=== PATIENT | male | born 1935 | race Caucasian/White ===

== ENCOUNTER → 2023-12-13 12:43 | Outpatient (REF) | payer MEDICARE, OTHER, SELFPAY | LOC: WOUND 12:43 | PROVIDERS: ATTENDING PHYSICIAN Surgery; REFERRING PHYSICIAN Student in an Organized Health Care Education/Training Program | DX: L89.623 Pressure ulcer of left heel, stage 3 (principal); E11.9 Type 2 diabetes mellitus without complications; R60.0 Localized edema; C61 Malignant neoplasm of prostate; R26.81 Unsteadiness on feet | CPT/HCPCS: 11042; 36415; 73630; 80053; 84153; 84403; 85025; 99204 ==

== ENCOUNTER 2024-06-17 20:54 | Emergency (ER) | payer MEDICARE, OTHER, SELFPAY ==
[2024-06-17 20:56] VITALS: BP 173/77; BMI 22.6
[2024-06-17 20:58] VITALS: BP 173/77
[2024-06-17 22:00] VITALS: BP 163/72
--- NOTE | 2024-06-17 22:53 | ED.GENMED ---
History of Present Illness
General
Chief Complaint: Musculo-Skeletal Complaint
Source: patient
Exam Limitations: none
Time Seen by Provider: 06/17/24 22:11
Nursing documentation reviewed up to this point in time: agreed with
History of Present Illness
History of Present Illness:
The patient is a pleasant 89-year-old man with a past medical history of metastatic prostate cancer on hospice. His reports that she found him on the floor about 3 days ago. She reports that since then, he has been complaining of right hip
pain. His reports that the fall was unwitnessed. She reports that she is not interested in any workup other than a basic x-ray of his right hip/thigh. She is aware that he could have hit his head. Patient denies headache, nausea and
vomiting. He is fully awake. reports he is acting his usual other than complaints of right hip pain. His reports that he generally does not walk, and if he does, he walks a very small distance with a walker.
Past History
Past History
ED Past Medical History: Cancer (Metastatic prostate cancer), Hypercholesterolemia, NIDDM and Hypothyroidism
ED Past Surgical History: Orthopedic
Social History
Tobacco: Non-smoker
Alcohol: None
Drug: None
Personal:
Living: with family
Employment: Other
Family History
Family History: Other
Review of Systems
Review of Systems
Allergies reviewed?: Yes
Other source history: other ()
All Other Systems: ROS reviewed and negative except as documented in HPI and ROS
Constitutional: Reports fatigue
EENT: Reports no symptoms
Respiratory: Reports no symptoms
Cardiac: Reports no symptoms
ABD/GI: Reports no symptoms
: Reports no symptoms
Musculoskeletal: Reports joint pain
Skin: Reports no symptoms
Neurological: Reports no symptoms
Endocrine: Reports no symptoms
Hematologic/Lymphatic: Reports no symptoms
Psychiatric: Reports no symptoms
Phy Exam
Physical Exam
Physical Exam:
Physical Exam
General: Patient appears pale and chronically ill. Patient however does not appear uncomfortable. He is resting comfortably. Atraumatic appearing face and head
Neck: supple. no meningeal signs. Nontender C-spine
Heart: s1/s2 regular rate and rhythm, no murmur. No lumbar spine tenderness. No thoracic spine tenderness
Lungs: no acute respiratory distress.
Abdomen: Soft, nontender. No ecchymoses on chest or abdomen
Neuro: alert and oriented. no focal neurological deficits
Skin: no rash
Psychiatric: well kept. interactive and cooperative
Extremities: Upper extremities are nontender. Patient has severe pain with flexion of right hip. Strong pulses in bilateral feet
Course
Orders/Labs/Results
Orders:
Orders
06/17/24 22:19
Hip, Right 2-3 Views [CR Hip - RT w/wo Pel 2-3 Vw*] Urgent
Comment:
Reason For Exam: fall, R thigh pain
Include a pelvis x-ray?: Yes
Vital Signs
Initial and Last Documented VS:
Initial Vital Signs
Temp Pulse Resp BP Pulse Ox
99.9 F 87 18 173/77 95
06/17/24 20:56 06/17/24 20:56 06/17/24 20:56 06/17/24 20:56 06/17/24 20:56
Last Documented Vital Signs
Temp Pulse Resp BP Pulse Ox
99.9 F 87 18 170/80 96
06/17/24 20:56 06/17/24 20:56 06/17/24 20:56 06/17/24 23:00 06/17/24 23:45
MDM/Problems Addressed
Differential Diagnosis Includes:
Acute closed right hip fracture, lumbar spine fracture, closed head injury
MDM/Problems Addressed:
Patient presents with acute right hip pain
Chronic conditions affecting care:
Given patient has metastatic prostate cancer, he could be at increased risk of fracture
*Radiology
Radiology exam reviewed: preliminary read by ED provider (Right hip x-ray reviewed by me. Suspicious for femoral neck fracture)
*Pulse Oximetry
Patient hypoxic: no
*EKG
Interpreted by ED Provider?: NA
*Club Steward Interpretation
Rate: Club Steward- N/A
*Critical Care Note
Total Time (30-74mins, 75-104mins- exclusive of procedures): Not Applicable
Data Reviewed
Source: other (Hospice nurse at the bedside who reports that patient did not have an x-ray but will need his hospice revoked for any further testing)
Patient Management
Social determinants of health affecting care: Living situation and Strong social support
Escalation/DeEscalation of care consider admission/obs:
Patient appears comfortable and well. He is in no acute distress. Patient presents with unwitnessed fall. It is unclear what caused the fall. Additionally, patient has a 99.9 temperature. understands all of this. Given he is on hospice,
she wants no further testing done which sounds reasonable. She understands that patient could become septic with an infection. She understands that hip fractures generally require surgery. She does not want any further testing due to patient
having metastatic cancer and being on hospice
ED Attending Note
-
Portions of this chart may have been created with voice recognition software.� Occasional wrong word or��sound alike� substitutions may have occurred due to the inherent limitations of voice recognition software.
Discharge Plan
Departure
Patient Disposition: Home (Routine Discharge)
Date of Disposition: 06/17/24
Time of Disposition: 23:45
Patient with high blood pressure during this ER visit?: Yes
Condition: Good
Covid-19: Not Applicable
Discharge Problem:
Closed fracture of right hip
Instructions: Hip Pain ED, BLOOD PRESSURE
Prescriptions:
No Action
simvastatin 20 MG tablet
20 mg PO QPM
insulin glargine [Lantus U-100 Insulin] 100 unit/mL Solution
13 unit SC HS
mirtazapine 15 mg Tablet
15 mg PO QHS
prednisone 5 mg Tablet
5 mg PO QPM
primidone 50 mg Tablet
100 mg PO HS
abiraterone 250 mg Tablet
1,000 mg PO DAILY
levothyroxine [Synthroid] 75 mcg Tablet
75 mcg PO DAILY
metformin 1,000 mg Tablet
1,000 mg PO DAILY@0800
metformin 500 mg Tablet
500 mg PO QPM@1700
therapeutic multivitamin Tablet
1 tab PO DAILY
calcium carbonate 500 mg calcium (1,250 mg) Tablet
500 mg PO DAILY
omega 0-iey-ape-fish oil [Fish Oil] 1,000 mg (120 mg-180 mg) Capsule
1 cap PO DAILY
aspirin 325 mg Tablet
325 mg PO DAILY Qty: 1 0RF
Rx Instructions:
DVT prophylaxis
docusate sodium 100 mg Capsule
100 mg PO BID Qty: 1 0RF
amlodipine 10 mg Tablet
10 mg PO DAILY Qty: 1 0RF
Rx Instructions:
New med
sennosides [Senna Lax] 8.6 mg Tablet
17.2 mg PO BID Qty: 1 0RF
oxycodone 5 mg Tablet
5 mg PO Q4HPRN PRN (Reason: mild pain) Qty: 12 0RF
acetaminophen 325 mg Tablet
650 mg PO Q4HWA Qty: 1 0RF
lisinopril 5 mg Tablet
5 mg PO BID Qty: 1 0RF
Rx Instructions:
New medication
doxycycline hyclate 100 mg Capsule
100 mg PO Q12 Qty: 4 0RF
cefuroxime axetil 500 mg tablet
500 mg PO BID Qty: 4 0RF
Referrals:
Nikole Morris MD [Family Provider] -
Interventions
Interventions:
*Risk Screen - Suicide Last Done: 06/17/24 21:00
*General Assessment Last Done: 06/17/24 21:00
*Neglect/Abuse Screening Last Done: 06/17/24 21:00
*ED COVID-19 Vaccine History Last Done: 06/17/24 21:01
ED-Musculoskeletal Assessment Last Done: 06/17/24 21:10
Discharge Date and Time
Print Language: IRAQI
[2024-06-17 23:00] VITALS: BP 170/80
[2024-06-18] VITALS: BP 158/72
== END 2024-06-18 01:21 | disposition home or self-care (01) ==
LOC: EMR 20:54
PROVIDERS: EMERGENCY PHYSICIAN Emergency Medicine; FAMILY PHYSICIAN Internal Medicine Hospice and Palliative Medicine
DX: S72.001A Fracture of unspecified part of neck of right femur, initial encounter for closed fracture (principal); W19.XXXA Unspecified fall, initial encounter; E78.00 Pure hypercholesterolemia, unspecified; E11.9 Type 2 diabetes mellitus without complications; E03.9 Hypothyroidism, unspecified; Z85.46 Personal history of malignant neoplasm of prostate
CPT/HCPCS: 99283; 73502